=== PATIENT | female | born 1990 | race American Indian/Alaskan Native ===

== ENCOUNTER 2017-12-13 10:35 | Day surgery (SDC) | payer OTHER ==
[~2017-12-13 10:35] MED LIST: LACTATED RINGERS 1,000 ML IV SCH; VERSED IV NR
--- NOTE | 2017-12-13 11:52 | Short Stay Summary ---
Short Stay Documentation Date of service: 12/13/17 Narrative H&P: Pt is a 27yo BF LMP 12/06/17 presents for surgical evaluation and treatment of Cervical dysplasia. Pap showed HGSIL; Cxbx showed CIN2 and ECS was Negative. She is therefore scheduled for a Cervical ablation. - History Principal diagnosis: Cervical dysplasia H&P: obtained from office Past Medical History: No medical history Past Surgical History: No surgical history Social history: no significant social history, single - Allergies and Medications Current Medications: Allergies No Known Allergies Allergy (Unverified 12/12/17 17:26) Home Medications Medication Instructions Recorded Confirmed Last Taken Type Loratadine [Claritin] 10 mg PO DAILY PRN 12/12/17 12/12/17 Unknown History Active Medications Lactated Ringer's (Lactated Ringers) 1,000 mls @ 100 mls/hr IV DIRECT AMADOR Midazolam HCl (Versed) 2 mg IV PREOP NR Stop: 12/13/17 23:59 - Physical exam General appearance: no acute distress Integumentary: no rash HEENT: Atraumatic Lungs: Clear to auscultation Breasts: deferred Heart: Regular rate Gastrointestinal: normal Female Genitourinary: deferred Rectal Exam: deferred Extremities: no ischemia, No edema Neurological: Normal gait, Normal speech - Brief post op/procedure progress note Date of procedure: 12/13/17 Pre-op diagnosis: Cervical dysplasia Post-op diagnosis: same Procedure: Cervical ablation Anesthesia: MAC Findings: Grossly normal appearing cervix. No lesions seen. Surgeon: JOHN LOVE Estimated blood loss: none Pathology: none Condition: stable - Hospital course Hospital course: Unremarkable. - Disposition Condition at discharge: Good Disposition: DC-01 TO HOME OR SELFCARE - Discharge Diagnoses (1) Cervical dysplasia Status: Resolved Short Stay Discharge Plan Activity: no restrictions Diet: regular Wound: open to air Follow up with: PRIMARY CAREMD [Primary Care Provider] - 7 Days JOHN LOVE MD [Staff Physician] - 14 Days Prescriptions: Ibuprofen [Motrin] 800 mg PO Q8HR PRN #30 tablet PRN Reason: Pain, Moderate (4-6)
[2017-12-13] MEDS ORDERED: ANCEF/STERILE WATER 2 GM/20 ML 2 GM/20 ML SYRINGE IV NR (12:00)
[2017-12-13] MEDS ORDERED: LACTATED RINGERS 1,000 ML ONE ×2 (12:14→14:32)
--- NOTE | 2017-12-13 12:16 | Anesthesia Day of Surgery ---
Anesthesia Day of Surgery - Day of Surgery Patient Examined: Yes Patient H&P Reviewed: Yes Patient is NPO: Yes
--- NOTE | 2017-12-13 12:16 | Anesthesia Consultation ---
Anesthesia Consult and Med Hx Date of service: 12/13/17 - Airway ROM Head & Neck: Adequate Mental/Hyoid Distance: Adequate Mallampati Class: Class II Intubation Access Assessment: Probably Good - Pulmonary Exam CTA: Yes - Cardiac Exam Cardiac Exam: RRR - Pre-Operative Health Status ASA Pre-Surgery Classification: ASA2 Proposed Anesthetic Plan: General - Central Nervous System Hx Psychiatric Problems: No - Other Systems Hx Alcohol Use: Yes (occas) Hx Cancer: No
[2017-12-13] MEDS ORDERED: ZOFRAN IV PRN (12:17)
[2017-12-13] MEDS ORDERED: ACETIC ACID 3% SOLN TP ONE (12:19)
[2017-12-13] MEDS ORDERED: MONSEL'S TP ONE (12:22)
[2017-12-13] MEDS ORDERED: THERMAZENE 50 GRAM TP ONE (12:22)
[2017-12-13] MEDS ORDERED: LUGOL'S SOLUTION 5% TP ONE (12:22)
[2017-12-13] MEDS ORDERED: XYLOCAINE TOPICAL 2% 5ML ONE (12:23)
[2017-12-13] MEDS ORDERED: DIPRIVAN 10 MG/ML IV ONE (12:26)
[2017-12-13] MEDS ORDERED: XYLOCAINE MPF 2% ONE (12:26)
[2017-12-13] MEDS ORDERED: SUBLIMAZE ONE (12:27)
[2017-12-13 12:35] LABS: Hemoglobin 11.9 gm/dl (10.1-14.3)
[2017-12-13] MEDS ORDERED: NACL 0.9% IR ONE (12:58)
[2017-12-13] MEDS ORDERED: DECADRON ONE (13:15)
[2017-12-13] MEDS ORDERED: ANCEF ONE (13:27)
[2017-12-13] MEDS ORDERED: TORADOL ONE (13:27)
[2017-12-13] MEDS: DILAUDID IV PRN ×2 (14:00→14:20)
--- NOTE | 2017-12-13 14:07 | Operative Report ---
Operative Report Operative Report: Date of procedure: 12/13/2017 Pre-operative diagnosis: Cervical dysplasia Post-operative diagnosis: Same Procedure name(s): Cervical ablation Surgeon: Anand Wyatt MD Mix Chemist: None Anesthesia: Gen. mask by Dr. Briscoe EBL: Minimal Findings: Grossly normal-appearing cervix. No lesions seen Procedure: After the patient was correctly identified, she was prepped and draped in the usual sterile fashion and placed in dorsolithotomy position. First the bladder was emptied using a straight catheter, next the speculum was placed in the vaginal vault and the anterior lip of the cervix was grasped with single-tooth tenaculum. Visualization of the cervix found it to be grossly normal without lesions. The Bovie cautery was set to 60 Santo, and the rollerball was used to ablate the entire cervix. After the ablation was complete, Monsel solution was placed on the cervix to stop any bleeding. At this point the procedure was considered complete. All instruments removed from the vagina, the patient tolerated the procedure well and was transferred to recovery in stable condition.
--- NOTE | 2017-12-13 16:14 | Post Anesthesia Evaluation ---
- Post Anesthesia Evaluation Patient Participated: Yes Airway Patent: Yes Stable Respiratory Function: Yes Nausea/Vomiting: No Temp > 96.8F: Yes Pain Manageable: Yes Adequeate Hydration: Yes Anesthesia Complications: No
[2017-12-13 16:50] VITALS: BP 125/83
== END 2017-12-13 17:12 | disposition home or self-care (01) ==
LOC: OR 10:35
PROVIDERS: ATTEND Obstetrics & Gynecology
DX: N87.9 Dysplasia of cervix uteri, unspecified (principal); E66.9 Obesity, unspecified; Z68.30 Body mass index [BMI] 30.0-30.9, adult
CPT/HCPCS: 36415; 57510; 81025; 85014; 85018; J0690; J1100; J1170; J1885; J2250; J2405; J2704; J3010; J7120